=== PATIENT | female | born 1995 | race Caucasian/White ===

== ENCOUNTER 2022-08-31 03:37 | Emergency (ER) | payer OTHER ==
[2022-08-31 03:47] VITALS: BP 112/74; PULSE 96; RESP 18; TEMP 98.7; BMI 24.5
[2022-08-31] MEDS ORDERED: ALBUTEROL SO4 2.5/IPRATROPIUM 0.5 INH SOL 3 ML VIAL.NEB. NEB ONE ×2 (04:40→04:48)
[2022-08-31] MEDS ORDERED: DEXAMETHASONE SOD PHOSPHATE 10 MG/1 ML VIAL IM ONE (04:41)
[2022-08-31] MEDS ORDERED: DEXAMETHASONE SOD PHOSPHATE 10 MG/1 ML VIAL ONE (04:48)
[2022-08-31] MEDS ORDERED: BENZONATATE 200 MG CAPSULE PO ONE (05:18)
[2022-08-31] MEDS ORDERED: AZITHROMYCIN 250 MG TABLET PO ONE (05:19)
[2022-08-31] MEDS ORDERED: AZITHROMYCIN 500 MG TABLET ONE (05:36)
== END 2022-08-31 05:48 | disposition home or self-care (01) ==
LOC: JER 03:37
PROC: 3E023GC Introduction of Other Therapeutic Substance into Muscle, Percutaneous Approach (ICD-10-PCS; principal; 2022-08-31)
PROC: 3E0F7GC Introduction of Other Therapeutic Substance into Respiratory Tract, Via Natural or Artificial Opening (ICD-10-PCS; 2022-08-31)
DX: R05.9 Cough, unspecified (principal); Z20.822 Contact with and (suspected) exposure to COVID-19
CPT/HCPCS: 0241U-QW; 26055; 71046-TC-FY; 99284-25; J1100